=== PATIENT | male | born 1980 | race Caucasian/White ===

== ENCOUNTER 2018-12-26 07:12 | Inpatient (IN) | payer SELFPAY ==
[~2018-12-26] VITALS: Ht 172.7 cm; Wt 99.0 kg
[2018-12-26] MEDS ORDERED: LORazepam 2MG/ML-1ML VIAL IV ONE ×2 (08:00→10:15)
[2018-12-26 08:03] LABS: Basophils # (auto) 0.1 uL; Basophils % (auto) 1.1 % (0.0-2.0); Eosinophils # (auto) 0.3 uL; Eosinophils % (auto) 4.8 % (0.0-7.0); Hematocrit 48.3 % (41.0-53.0); Hemoglobin 16.8 g/dL (13.5-17.5); Lymphocytes # (auto) 2.7 uL; Lymphocytes % (auto) 45.3 % (10.0-50.0); Mean Corpuscular Hemoglobin 28.8 pg (28.0-32.0); Mean Corpuscular Hgb Conc. 34.7 g/dL (32.0-36.0); Mean Corpuscular Volume 82.9 fL (80.0-100.0); Monocytes # (auto) 0.5 uL; Monocytes % (auto) 8.3 % (0.0-12.0); Neutrophils # (auto) 2.4 uL; Neutrophils % (auto) 40.5 % (37.0-80.0); Nucleated Red Blood Cells % 0.4 %; Platelet Count (auto) 179 10^3/uL (140-450); Red Blood Cells 5.83 10^6/uL (4.5-5.90); Red Cell Distribution Width 13.2 % (11.8-14.3)
[2018-12-26 08:20] LABS: Anion Gap 7 (5-15); Blood Urea Nitrogen 16 mg/dL (7-18); Calcium 8.8 mg/dL (8.5-10.1); Carbon Dioxide 26 mmol/L (21-32); Chloride 108 mmol/L (98-107); Glucose 122 mg/dL (74-106); Potassium 3.7 mmol/L (3.5-5.1); Sodium 141 mmol/L (136-145)
[2018-12-26] MEDS ORDERED: DILTIAZEM HCL 25 MG/5 ML VIAL IV ONE ×3 (08:21→09:15)
[2018-12-26 08:24] LABS: Urine Bacteria NONE SEEN /hpf (None Seen); Urine Blood Negative /uL (Negative); Urine Specific Gravity 1.011 (1.001-1.035); Urine WBC 2 /hpf (0 - 3)
[2018-12-26 08:25] LABS: INR 0.93 (0.9-1.15); Partial Thromboplastin Time 24.8 sec (23.64-32.05)
[2018-12-26 08:26] LABS: Alanine Aminotransferase 56 U/L (16-61); Alkaline Phosphatase 70 U/L (45-117); Aspartate Aminotransferase 45 U/L (15-37); BUN/Creatinine Ratio 16.5; Bilirubin, Total 0.4 mg/dL (0.2-1.0); GFR African American 113 mL/min; GFR Non-African American 93 mL/min; Total Protein 8.3 g/dL (6.4-8.2)
[2018-12-26 08:26] LABS: Alcohol, Urine < 3.0 mg/dL (0-5); Amphetamine Screen, Urine NEGATIVE (NEGATIVE); Benzodiazephine Screen, Urine NEGATIVE (NEGATIVE); Cannabinoid Screen, Urine NEGATIVE (NEGATIVE)
[2018-12-26] MEDS ORDERED: DILTIAZEM HCL 120MG ER CAP PO ONE (08:30)
[2018-12-26 08:31] LABS: Barbiturate Scree,Urine NEGATIVE (NEGATIVE); Cocaine Screen, Urine NEGATIVE (NEGATIVE); Opiate Scree,Urine NEGATIVE (NEGATIVE); Phencyclidine Screen, Urine NEGATIVE (NEGATIVE)
[2018-12-26] MEDS ORDERED: AMIODARONE HCL 150 MG in D5W 5% 100 ML IV ONE (10:15)
[2018-12-26] MEDS ORDERED: AMIODARONE HCL 900 MG in DEXTROSE 500 ML IV SCH (10:17)
[2018-12-26] MEDS ORDERED: AMIODARONE HCL 200 MG TAB PO ONE (11:30)
[2018-12-26] MEDS ORDERED: traMADol HCL 50 MG TAB PO PRN (12:00)
[2018-12-26] MEDS ORDERED: ACETAMINOPHEN 500 MG TAB PO PRN (12:00)
[2018-12-26] MEDS ORDERED: PROMETHAZINE HCL 25 MG/ML 1ML IV PRN (12:00)
[2018-12-26] MEDS ORDERED: LACTULOSE 20Gm/30ML SOLN PO PRN (12:00)
[2018-12-26] MEDS ORDERED: MORPHINE SULF INJ 2 MG/ML SYRINGE 1ML IV PRN (12:00)
[2018-12-26] MEDS ORDERED: NITROGLYCERIN 0.4 MG SL TAB SL PRN (12:00)
[2018-12-26] MEDS ORDERED: DEXTROSE (50%) 50ML SYRG IV PRN (12:00)
[2018-12-26] MEDS ORDERED: TEMAZEPAM 15 MG CAP PO PRN (12:00)
[2018-12-26] MEDS: ENOXAPARIN SOD 100 MG/1 ML SYRINGE SC SCH ×2 (12:45→22:00)
[2018-12-26] MEDS: SODIUM CHLORIDE 0.9% 1,000 ML IV SCH (12:45)
[2018-12-26 13:52] LABS: CRP High Sensitivity 1.06 mg/dL (< 0.3)
[2018-12-26] MEDS: ACCU-CHEK COMFORT CURVE STRIP VI SCH ×2 (17:35→22:02)
[2018-12-26 20:25] VITALS: BP 122/66
--- NOTE | 2018-12-26 20:25 | NUR ---
Telemetry admit from ER BHUPINDER CLEMENT admitted to Telemetry unit after SBAR received. Patient oriented to BRYAN REAVES RN primary RN, unit, room, bed, and unit policies regarding patient care and visiting hours. Patient now on continuous telemetry monitoring, tele box # 20 and telemetry reading on arrival to unit is Sinus rhythm. Patient placed on bedside oxygen, weighed by bedscale and encouraged to call if they need something. All questions and concerns addressed, patient verbalized understanding.
[2018-12-26 22:00] VITALS: BP 122/66
[2018-12-26] MEDS: METOPROLOL TARTRATE 25 MG TAB PO SCH (22:00)
[2018-12-27] MEDS: SODIUM CHLORIDE 0.9% 1,000 ML IV SCH (01:20)
[2018-12-27 04:56] VITALS: BP 117/68
[2018-12-27 05:15] LABS: Cholesterol 212 mg/dL (< 200); Triglycerides 929 mg/dL (< 150)
[2018-12-27 05:17] LABS: HDL Cholesterol 34 mg/dL (40-59)
[2018-12-27] MEDS: ACCU-CHEK COMFORT CURVE STRIP VI SCH ×2 (07:25→11:44)
--- NOTE | 2018-12-27 07:26 | NUR ---
Endorsed care to day shift RN.
--- NOTE | 2018-12-27 08:00 | NUR ---
Opening Shift Note Assumed care of patient, awake and alert. No S/S of distress/SOB or pain. Answered questions as much as possible and informed patient that the doctor will be coming around today to see him. Patient stated that he didn't know the cause of the Afib and that he always drinks beverages with caffeine and has never had this problem before. He asked when the doctor will be around and said if he doesn't see someone by about noon he will just leave. This nurse informed him of the Cardio consult and that the ECHO results are still pending so the Physical Integration Practitioner needs to wait for the results to come in to evaluate the problem and cause using that information. Patient expressed understanding. Also informed patient that if he were to leave AMA, his insurance might not cover the stay here. He stated that he would likely be paying luz anyway. Instructed on POC and to call for assist PRN, will continue to monitor for changes Q1hr and PRN.
[2018-12-27 09:00] VITALS: BP 124/83
[2018-12-27] MEDS: METOPROLOL TARTRATE 25 MG TAB PO SCH (09:39)
[2018-12-27] MEDS: ENOXAPARIN SOD 100 MG/1 ML SYRINGE SC SCH (09:39)
[2018-12-27] MEDS ORDERED: PANTOPRAZOLE 40 MG TAB PO SCH (10:00)
[2018-12-27] MEDS ORDERED: ASPirin 81 mg TAB PO SCH (10:00)
[2018-12-27 11:28] LABS: BUN/Creatinine Ratio 13.1; Calcium 8.5 mg/dL (8.5-10.1); Magnesium 2.4 mg/dL (1.6-2.6); Potassium 4.3 mmol/L (3.5-5.1)
--- NOTE | 2018-12-27 12:45 | NUR ---
PT REFUSING... STRESS TEST IN HOSPITAL. HE SAID HE COULD GET IT DONE OUTPATIENT. MD EXPRESSED CONCERN DUE TO THE FACT THAT THE PATIENT DOES NOT HAVE INSURANCE AT THIS TIME. PATIENT ALSO REFUSED TO CONTINUE METOPROL OUTSIDE OF THE HOSPITAL. HE BELIEVES THAT IT WAS A ONE TIME OCCURRENCE WHICH RESOLVED ITSELF WHEN HE HAD A BOWEL MOVEMENT UPON ARRIVAL TO THE HOSPITAL. HE AGREED TO CALL 911 AND COME BACK TO THE HOSPITAL IF IT OCCURS AGAIN.
[2018-12-27 13:00] VITALS: BP 136/81
--- NOTE | 2018-12-27 13:59 | NUR ---
DISCHARGE ALL DISCHARGE PAPERWORK GIVEN TO PATIENT, QUESTIONS ANSWERED. PRESCRIPTION FOR LIPITOR GIVEN TO PATIENT. ID BAND REMOVED, TELEMETRY REMOVED AND TAKEN TO [place]. IV REMOVED. PATIENT WAS GIVEN INFORMATION ON PERSON TO CALL REGARDING RESOURCES FOR INSURANCE. HE WAS ALSO GIVEN INFORMATION FOR [facility] FOR FOLLOW UP CARE DUE TO NOT HAVING INSURANCE. PATIENT LEFT IN PERSONAL VEHICLE WITH ALL BELONGINGS AND SPOUSE PRESENT.
--- NOTE | 2018-12-28 12:51 | NUR ---
assessment Patient has been discharged prior to being assessed for ss consult for no insurance and resources. Addendum: 12/28/18 at 1252 by Regina BARRAGAN Amended: Links added.
== END 2018-12-27 14:00 | disposition home or self-care (01) | DRG 310 ==
LOC: ER 07:12 → OVERFLOW 07:13 → TELE-WESTW 20:22
PROVIDERS: ADMIT Internal Medicine; ATTEND Internal Medicine
DX: I48.0 Paroxysmal atrial fibrillation (principal); E66.9 Obesity, unspecified; R73.9 Hyperglycemia, unspecified; E78.5 Hyperlipidemia, unspecified; Z87.442 Personal history of urinary calculi; Z79.899 Other long term (current) drug therapy; Z80.8 Family history of malignant neoplasm of other organs or systems; Z68.33 Body mass index [BMI] 33.0-33.9, adult
CPT/HCPCS: 36415; 71045; 80048; 80053; 80061; 80307; 80320; 81001; 82550; 82962; 83036; 83735; 84439; 84443; 84484; 85025; 85379; 85610; 85652; 85730; 86141; 93005; 93306; 94761; 96374; 96375; G0378; J7060